=== PATIENT | male | born 1995 | race Hispanic/Latino ===

== ENCOUNTER 2024-12-18 14:47 | Emergency (ER) | payer OTHER ==
[~2024-12-18 14:47] MED LIST: Iopamidol-370 76% 500 ML MDV (1 ML CHARGE) ONE
[2024-12-18] MEDS ORDERED: Ketorolac Tromethamine 30 MG (1 mL) VIAL ONE (15:27)
[2024-12-18 16:00] LABS: #Basophils 0.04 10x3/uL (0.0-0.2); %Basophils 0.5 % (0.0-1.0); %Eosinophils 2.4 % (0.0-10.0); %Lymphocytes 18.9 % (21.0-51.0); %Monocytes 12.7 % (0.0-10.0); %Neutrophils 65.2 % (42.0-75.0); Hematocrit 40.9 % (42.0-52.0); Mean Corpuscular HGB CONC 34.2 g/dL (32.0-36.0); Mean Corpuscular Hemoglobin 31.3 pg (27.0-31.0); Mean Corpuscular Volume 91.3 fL (78.0-98.0); Mean Platelet Volume 9.4 fL (7.4-10.4); Platelet Count 348 10x3/uL (130-400); RBC Distribution Width 11.9 % (11.5-14.5); Red Blood Cell (RBC) Count 4.48 mill/uL (4.70-6.10)
[2024-12-18 16:24] LABS: ALT (SGPT) 20 U/L (Less than 45); AST (SGOT) 31 U/L (11-34); Albumin 3.6 g/dL (3.1-4.5); Alkaline Phosphatase 136 U/L (40-110); Anion Gap 13 mmol/L (10-20); BUN (Urea Nitrogen) 14 mg/dL (8.9-20.6); Bilirubin, Total 0.4 mg/dL (0.3-1.2); Calc. Creatinine Clearance 0 mL/min (70-130); Calcium 9.1 mg/dL (7.8-10.44); Carbon Dioxide 27 mmol/L (22-29); Chloride 104 mmol/L (98-107); Estimated GFR 122; Globulin 4.6 g/dL (2.4-3.5); Glucose 90 mg/dL (70-105); Potassium 4.7 mmol/L (3.5-5.1); Protein, Total 8.2 g/dL (6.0-8.3); Sodium 139 mmol/L (136-145)
[2024-12-21 22:38] LABS: QuantiFERON-TB Gold Plus Negative (Negative)
== END 2024-12-18 20:24 ==
LOC: ERS 14:47
DX: I88.9 Nonspecific lymphadenitis, unspecified (principal)
CPT/HCPCS: 36415; 76999; 80053; 85025; 86480; 96374; J1885; Q9967